=== PATIENT | female | born 1935 | race Two or more races ===

== ENCOUNTER 2018-10-02 20:49 | Inpatient (IN) | payer MEDICARE, MEDICAID ==
--- NOTE | 2018-10-02 21:04 | ED Physician Chart ---
ED Chief Complaint/HPI - Patient Information Date Seen:: 10/02/18 Time Seen:: 20:50 Chief Complaint:: shortness of breath History of Present Illness:: Patient was at the imaging center next door to the hospital when she suddenly developed shortness of breath. No chest pain. Paramedics placed the patient on CPAP and brought her here. Historian:: Patient, Family Member Review:: Nurse's Note Reviewed ED Review of Systems - Review of Systems General/Constitutional: No fever, No chills Head: No headache Eyes: No loss of vision ENT: No earache Neck: No neck pain Cardio Vascular: No chest pain Pulmonary: SOB, Cough GI: No nausea, No vomiting, No diarrhea Musculoskeletal: No bone or joint pain Endocrine: No polyuria Psychiatric: No prior psych history Hematopoietic: No bruising Allergic/Immuno: No urticaria Neurological: No syncope ED Past Medical History - Past Medical History Past Medical History: HTN, DM Family History: HTN, Cancer Social History: No Alcohol, Other (stopped smoking more than 20 years ago) Surgical History: Cholecystectomy Psychiatricy History: None Family Medical History - Family Member Mother History Unknown: Yes Ethnicity: Non- ED Physical Exam - Physical Examination General/Constitutional: Alert Other Gen/Cons comments:: Moderate tachypnea Head: Atraumatic Eyes: Lids, conjuctiva normal, PERRL Skin: Nl inspection, No rash ENMT: External ears, nose nl, Lips, teeth, gums nl Neck: No nuchal rigidity Other Respiratory comments:: Left sided rales Other Cardio Vascular comments:: Heart sounds inaudible GI: No tenderness/rebounding/guarding Other Extremities comments:: 2 out of 4 pretibial pitting edema Neuro/Psych: No focal deficits Misc: No paraspinal tenderness ED Labs/Radiology/EKG Results - Lab Results Results: Laboratory Results WBC 10.9 Th/cmm (4.8-10.8) H 10/02/18 21:20 RBC 4.23 Mil/cmm (3.80-5.20) 10/02/18 21:20 Hgb 13.4 gm/dL (12-16) 10/02/18 21:20 Hct 39.7 % (41.0-60) L 10/02/18 21:20 MCV 93.8 fl (81-100) 10/02/18 21:20 MCH 31.5 pg (27.0-31.0) H 10/02/18 21:20 MCHC Differential 33.6 pg (28.0-36.0) 10/02/18 21:20 RDW 12.8 % (11.5-20.0) 10/02/18 21:20 Plt Count 381 Th/cmm (150-400) 10/02/18 21:20 MPV 8.2 fl 10/02/18 21:20 Neutrophils % 78.7 % (40.0-80.0) 10/02/18 21:20 Lymphocytes % 16.3 % (20.0-50.0) L 10/02/18 21:20 Monocytes % 3.3 % (2.0-10.0) 10/02/18 21:20 Eosinophils % 0.9 % (0.0-5.0) 10/02/18 21:20 Basophils % 0.8 % (0.0-2.0) 10/02/18 21:20 Sodium 138 mEq/L (136-145) 10/02/18 21:20 Potassium 3.3 mEq/L (3.5-5.1) L 10/02/18 21:20 Chloride 99 mEq/L (98-107) 10/02/18 21:20 Carbon Dioxide 26.7 mEq/L (21.0-31.0) 10/02/18 21:20 Anion Gap 15.6 (7.0-16.0) 10/02/18 21:20 BUN 14 mg/dL (7-25) 10/02/18 21:20 Creatinine 0.8 mg/dL (0.6-1.2) 10/02/18 21:20 Est GFR ( Amer) TNP 10/02/18 21:20 Est GFR (Non-Af Amer) TNP 10/02/18 21:20 BUN/Creatinine Ratio 17.5 10/02/18 21:20 Glucose 163 mg/dL (70-105) H 10/02/18 21:20 POC Glucose 158 MG/DL (70 - 105) H 10/02/18 20:59 Calcium 9.9 mg/dL (8.6-10.3) 10/02/18 21:20 Magnesium 1.5 mg/dL (1.9-2.7) L 10/02/18 21:20 - Radiology Results Results: Chest x-ray showed pulmonary congestion - EKG Interpretations Rate & Rhythm: atrial fibrillation with a rate of 110 [place]: normal Comments:: ST and T-wave changes ED Assessment - Assessment General Assessment: After being placed on BiPAP and receiving nitroglycerin 0.4 mg sublingually every 5 minutes 3 patient's shortness of breath markedly improved. Chest x- ray appears to show pulmonary congestion but BNP is only 286. Perhaps the patient's BNP is not higher because her congestive heart failure developed rapidly. Patient to be given potassium chloride 40 mEq orally for her potassium of 3.2 and 2 g of magnesium sulfate IV piggyback her magnesium is 1.5. ED Septic Shock - . Is Septic Shock (SBP<90, OR Lactate>4 mmol\L) present?: No ED Reassessment (Disposition) - Reassessment Reassessment Condition:: Improved - Diagnosis Diagnosis:: Congestive heart failure; hypokalemia; hypomagnesemia; hyperglycemia; diabetes - Patient Disposition Admitted to:: ICU Spoke to:: Nguyen Lao Admitting Medical Physician:: Nguyen Lao Condition at Disposition:: Stable, Improved
[2018-10-02] MEDS ORDERED: Albuterol/Ipratropium Neb 3 ML AERS HHN ONE ×2 (21:11→21:56)
[2018-10-02 21:27] LABS: % BASOPHILS 0.8 % (0.0-2.0); % EOSINOPHILS 0.9 % (0.0-5.0); % LYMPHOCYTES 16.3 % (20.0-50.0); % MONOCYTES 3.3 % (2.0-10.0); % NEUTROPHILS 78.7 % (40.0-80.0); BASOPHILE ABSOLUTE 0.1 Th/cumm (0-0.2); EOSINOPHILE ABSOLUTE 0.1 Th/cmm (0.1-0.4); HEMATOCRIT 39.7 % (41.0-60); HEMOGLOBIN 13.4 gm/dL (12-16); LYMPHOCYTE ABSOLUTE 1.8 Th/cmm (1.5-3.0); MEAN CELL VOLUME 93.8 fl (81-100); MEAN CORPUSCULAR HEMOGLOBIN 31.5 pg (27.0-31.0); MEAN CORPUSCULAR HGB CONC 33.6 pg (28.0-36.0); MONOCYTE ABSOLUTE 0.4 Th/cmm (0.3-1.0); NEUTROPHILE ABSOLUTE 8.5 Th/cmm (1.8-8.0); PLATELET COUNT 381 Th/cmm (150-400); RED BLOOD COUNT 4.23 Mil/cmm (3.80-5.20); RED CELL DISTRIBUTION WIDTH 12.8 % (11.5-20.0); WHITE BLOOD COUNT 10.9 Th/cmm (4.8-10.8)
[2018-10-02 21:47] LABS: ANION GAP 15.6 (7.0-16.0); BUN - UREA NITROGEN 14 mg/dL (7-25); CALCIUM SERUM 9.9 mg/dL (8.6-10.3); CARBON DIOXIDE 26.7 mEq/L (21.0-31.0); CHLORIDE 99 mEq/L (98-107); CREATININE - SERUM 0.8 mg/dL (0.6-1.2); GLUCOSE 163 mg/dL (70-105); MAGNESIUM 1.5 mg/dL (1.9-2.7); POTASSIUM SERUM 3.3 mEq/L (3.5-5.1); SODIUM SERUM 138 mEq/L (136-145)
[2018-10-02] MEDS ORDERED: Potassium Chloride 20 mEq ER Tab PO ONE ×2 (21:51→22:19)
[2018-10-02 21:52] LABS: PaCO2 42.1 mmHg (35.0-45.0); PaO2 128.4 mmHg (80.0-100.0)
[2018-10-02 21:53] LABS: sO2c 98.6 % (92.0-100.0)
[2018-10-02] MEDS ORDERED: Mag Sulfate 2gm/50mL Premix 2 GM/50 ML BAG IV ONE ×2 (21:54→22:01)
[2018-10-02] MEDS ORDERED: Albuterol/Ipratropium Neb 3 ML AERS HHN PRN (23:52)
[2018-10-03] MEDS: INSULIN HUMAN REGULAR 100 UNITS/ML UNIT SUBQ SCH ×5 (00:28→20:17)
[2018-10-03 00:59] VITALS: BP 161/77
[2018-10-03] MEDS: Hydrocodone/APAP 5mg/325mg Tab PO PRN (01:29)
[2018-10-03 05:20] LABS: URINE SOURCE FOLEY PORT
[2018-10-03 05:24] LABS: % BASOPHILS 0.9 % (0.0-2.0); % EOSINOPHILS 0.6 % (0.0-5.0); % LYMPHOCYTES 19.6 % (20.0-50.0); % MONOCYTES 6.2 % (2.0-10.0); % NEUTROPHILS 72.7 % (40.0-80.0); BASOPHILE ABSOLUTE 0.1 Th/cumm (0-0.2); EOSINOPHILE ABSOLUTE 0.1 Th/cmm (0.1-0.4); HEMATOCRIT 38.7 % (41.0-60); HEMOGLOBIN 12.7 gm/dL (12-16); LYMPHOCYTE ABSOLUTE 1.7 Th/cmm (1.5-3.0); MEAN CORPUSCULAR HEMOGLOBIN 30.8 pg (27.0-31.0); MEAN CORPUSCULAR HGB CONC 32.8 pg (28.0-36.0); MONOCYTE ABSOLUTE 0.6 Th/cmm (0.3-1.0); NEUTROPHILE ABSOLUTE 6.4 Th/cmm (1.8-8.0); PLATELET COUNT 362 Th/cmm (150-400); RED BLOOD COUNT 4.12 Mil/cmm (3.80-5.20); RED CELL DISTRIBUTION WIDTH 12.7 % (11.5-20.0); WHITE BLOOD COUNT 8.9 Th/cmm (4.8-10.8)
[2018-10-03 05:31] LABS: URINE BILIRUBIN NEGATIVE (NEGATIVE); URINE BLOOD NEGATIVE (NEGATIVE); URINE GLUCOSE (UA) NEGATIVE (NEGATIVE); URINE KETONE NEGATIVE (NEGATIVE); URINE LEUKOCYTE ESTERASE NEGATIVE (NEGATIVE); URINE NITRATE NEGATIVE (NEGATIVE); URINE PH 7.5 (4.6 - 8.0); URINE PROTEIN NEGATIVE (NEGATIVE); URINE UROBILINOGEN 0.2 E.U./dL (0.2 - 1.0)
[2018-10-03 05:36] LABS: URINE CLARITY CLEAR (CLEAR); URINE COLOR YELLOW; URINE MICROSCOPIC INDICATED? NO
[2018-10-03 05:47] LABS: ALB/GLOB RATIO 1.2 (1.0-1.8); ALKALINE PHOSPHATASE 37 U/L (34-104); ANION GAP 15.8 (7.0-16.0); BILIRUBIN,TOTAL 0.9 mg/dL (0.3-1.0); BUN - UREA NITROGEN 13 mg/dL (7-25); CALCIUM SERUM 9.7 mg/dL (8.6-10.3); CARBON DIOXIDE 27.4 mEq/L (21.0-31.0); CHLORIDE 102 mEq/L (98-107); CREATININE - SERUM 0.8 mg/dL (0.6-1.2); GLUCOSE 111 mg/dL (70-105); POTASSIUM SERUM 3.2 mEq/L (3.5-5.1); SGOT 14 U/L (13-39); SGPT/ALT 12 U/L (7-52); SODIUM SERUM 142 mEq/L (136-145); TOTAL PROTEIN,SERUM 7.4 gm/dL (6.0-8.3)
--- NOTE | 2018-10-03 08:20 | Diagnostic Imaging Report ---
Exam: Portable chest x-ray HISTORY: Shortness of breath Right exam: None Findings: Portable summation of the chest at 2108 reviewed no prior studies available comparison. The study demonstrates no active pulmonic infiltrates or effusions. The heart is enlarged bony thorax is intact. The aortic arch calcified IMPRESSION no active disease.
[2018-10-03] MEDS: Aspirin 81mg Chewable Tab PO SCH (08:34)
[2018-10-03] MEDS: Enoxaparin 40 mg/0.4 mL 0.4mL Syr SUBQ SCH (08:35)
[2018-10-03] MEDS ORDERED: Potassium Chloride 20 mEq ER Tab PO ONE (11:30)
--- NOTE | 2018-10-03 13:56 | General Progress Note ---
Subjective - Review of Systems Service Date: 10/03/18 Subjective: Patient has no complaint of chest pain or shortness of breath Objective - Results Result Diagrams: 10/03/18 05:00 10/03/18 05:00 Recent Labs: Laboratory Last Values WBC 8.9 Th/cmm (4.8-10.8) 10/03/18 05:00 RBC 4.12 Mil/cmm (3.80-5.20) 10/03/18 05:00 Hgb 12.7 gm/dL (12-16) 10/03/18 05:00 Hct 38.7 % (41.0-60) L 10/03/18 05:00 MCV 94.0 fl (81-100) 10/03/18 05:00 MCH 30.8 pg (27.0-31.0) 10/03/18 05:00 MCHC Differential 32.8 pg (28.0-36.0) 10/03/18 05:00 RDW 12.7 % (11.5-20.0) 10/03/18 05:00 Plt Count 362 Th/cmm (150-400) 10/03/18 05:00 MPV 8.2 fl 10/03/18 05:00 Neutrophils % 72.7 % (40.0-80.0) 10/03/18 05:00 Lymphocytes % 19.6 % (20.0-50.0) L 10/03/18 05:00 Monocytes % 6.2 % (2.0-10.0) 10/03/18 05:00 Eosinophils % 0.6 % (0.0-5.0) 10/03/18 05:00 Basophils % 0.9 % (0.0-2.0) 10/03/18 05:00 Specimen Source Arterial 10/02/18 21: Sample Site L.Brachial 10/02/18 21: pH 7.410 (7.35-7.45) 10/02/18 21: pCO2 42.1 mmHg (35.0-45.0) 10/02/18 21: pO2 128.4 mmHg (80.0-100.0) H 10/02/18 21: HCO3 26.3 mEq/L (20.0-26.0) H 10/02/18: Base Excess 1.5 mEq/L (-3.0-3.0) 10/02/18 21: O2 Saturation 98.6 % (92.0-100.0) 10/02/18 21: Everardo Test NA 10/02/18 21: Vent Rate 14 10/02/18 21:29 Inspired O2 40 10/02/18 21: Tidal Volume NA 10/02/18 21: PEEP 8 10/02/18 21:29 Pressure (ins/psv/peep) NA 10/02/18 21:29 Critical Value L.Rocaela 10/02/18 21: Sodium 142 mEq/L (136-145) 10/03/18 05:00 Potassium 3.2 mEq/L (3.5-5.1) L 10/03/18 05:00 Chloride 102 mEq/L (98-107) 10/03/18 05:00 Carbon Dioxide 27.4 mEq/L (21.0-31.0) 10/03/18 05:00 Anion Gap 15.8 (7.0-16.0) 10/03/18 05:00 BUN 13 mg/dL (7-25) 10/03/18 05:00 Creatinine 0.8 mg/dL (0.6-1.2) 10/03/18 05:00 Est GFR ( Amer) TNP 10/03/18 05:00 Est GFR (Non-Af Amer) TNP 10/03/18 05:00 BUN/Creatinine Ratio 16.3 10/03/18 05:00 Glucose 111 mg/dL (70-105) H 10/03/18 05:00 POC Glucose 127 MG/DL (70 - 105) H 10/03/18 11:05 Whole Bld Lactic Acid 1.53 mmol/L (0.60-1.99) 10/02/18 23:45 Calcium 9.7 mg/dL (8.6-10.3) 10/03/18 05:00 Magnesium 1.5 mg/dL (1.9-2.7) L 10/02/18 21:20 Total Bilirubin 0.9 mg/dL (0.3-1.0) 10/03/18 05:00 AST 14 U/L (13-39) 10/03/18 05:00 ALT 12 U/L (7-52) 10/03/18 05:00 Alkaline Phosphatase 37 U/L (34-104) 10/03/18 05:00 Troponin I 0.02 ng/mL (0.01-0.05) 10/03/18 05:00 B-Natriuretic Peptide 286.0 pg/mL (5.0-100.0) H 10/02/18 21:20 Total Protein 7.4 gm/dL (6.0-8.3) 10/03/18 05:00 Albumin 4.0 gm/dL (3.7-5.3) 10/03/18 05:00 Globulin 3.4 gm/dL 10/03/18 05:00 Albumin/Globulin Ratio 1.2 (1.0-1.8) 10/03/18 05:00 Urine Source [place] 10/03/18 04:46 Urine Color YELLOW 10/03/18 04:46 Urine Clarity CLEAR (CLEAR) 10/03/18 04:46 Urine pH 7.5 (4.6 - 8.0) 10/03/18 04:46 Ur Specific [place] 1.010 (1.005-1.030) 10/03/18 04:46 Urine Protein NEGATIVE mg/dL (NEGATIVE) 10/03/18 04:46 Urine Glucose (UA) NEGATIVE mg/dL (NEGATIVE) 10/03/18 04:46 Urine Ketones NEGATIVE mg/dL (NEGATIVE) 10/03/18 04:46 Urine Blood NEGATIVE (NEGATIVE) 10/03/18 04:46 Urine Nitrate NEGATIVE (NEGATIVE) 10/03/18 04:46 Urine Bilirubin NEGATIVE (NEGATIVE) 10/03/18 04:46 Urine Urobilinogen 0.2 E.U./dL (0.2 - 1.0) 10/03/18 04:46 Ur Leukocyte Esterase NEGATIVE (NEGATIVE) 10/03/18 04:46 - Physical Exam Vitals and I&O: Vital Signs Temp 98.2 F 10/03/18 12:00 Pulse 73 10/03/18 13:00 Resp 19 10/03/18 13:00 BP 156/74 10/03/18 13:00 Pulse Ox 98 10/03/18 13:00 Intake & Output 10/02/18 10/03/18 10/03/18 18:59 06:59 18:59 Intake Total 240 Output Total 5600 Balance -5360 Weight (lbs) 127.006 kg Intake: Oral 240 Output: Urine 5600 Other: # Bowel Movements 0 Stool Characteristics Soft Soft Formed Formed Weight Source Bedscale Active Medications: Current Medications Acetaminophen/Hydrocodone Bitart ([place] 5mg/325mg) 1 tab PO Q8HR PRN PRN Reason: Pain (Moderate) Stop: 12/01/18 23:51 Last Admin: 10/03/18 01:29 Dose: 1 tab Albuterol/Ipratropium (Duoneb Neb) 3 ml HHN Q4HRT PRN PRN Reason: Shortness of Breath or Wheeze Stop: 12/01/18 23:51 Aspirin (Aspirin Chewable) 81 mg PO DAILY [facility] Stop: 12/02/18 08:59 Last Admin: 10/03/18 08:34 Dose: 81 mg Carvedilol (Coreg) 6.25 mg PO BID [facility] Stop: 12/02/18 08:59 Last Admin: 10/03/18 08:34 Dose: 6.25 mg Enoxaparin Sodium (Lovenox) 40 mg SUBQ DAILY [facility] Stop: 12/02/18 08:59 Last Admin: 10/03/18 08:35 Dose: 40 mg Furosemide (Lasix) 20 mg IVP Q12HR [facility] Stop: 12/01/18 23:51 Last Admin: 10/03/18 08:35 Dose: 20 mg Gabapentin (Neurontin) 300 mg PO BID [facility] Stop: 12/02/18 08:59 Last Admin: 10/03/18 08:34 Dose: 300 mg Insulin Human Regular (Humulin R) 0 units SUBQ ACHS [facility]; Protocol Stop: 12/02/18 00:29 Last Admin: 10/03/18 11:49 Dose: Not Given Metformin HCl (Glucophage) 1,000 mg PO BID [facility] Stop: 12/02/18 08:59 Last Admin: 10/03/18 08:34 Dose: 1,000 mg Potassium Chloride (Klor-Con) 20 meq PO DAILY [facility] Stop: 12/03/18 08:59 General: Alert, No acute distress HEENT: Mucous membr. moist/pink Neck: Supple, JVD, +2 carotid pulse wo bruit (10 cm above sternal angle) Cardiovascular: Systolic murmurs, Other (atrial fibrillation) Lungs: Other (basilar rales) Abdomen: Bowel sounds, Soft, Obese (hepatojugular false-positive), Other Neurological: Normal speech, Strength at 5/5 X4 ext, Normal tone, Cranial nerves 3-12 NL, Reflexes 2+ Assessment/Plan - Assessment Assessment: Atrial fibrillation Congestive heart failure diastolic dysfunction acute Morbid obesity Hypertension Diabetes mellitus type 2 Hypokalemia Hyper magnesium Obstructive sleep apnea on CPAP machine - Plan Plan: Continue present management anticoagulation Lasix
--- NOTE | 2018-10-03 16:30 | History & Physical ---
ADMIT DATE: 10/02/2018 CHIEF COMPLAINT: Acute shortness of breath. HISTORY OF PRESENT ILLNESS: The patient is an 82-year-old female with long history of hypertension, diabetes mellitus, congestive heart failure, degenerative joint disease, was in the x-ray department for MRI of the right hip. The patient started having shortness of breath. She could not finish the procedure and transferred to the Emergency Room at [facility]. On arrival, was evaluated by physician. The patient was hypoxic, started on BiPAP, admitted to the ICU. No chest pain, no nausea, no vomiting, no fever, no chills. The patient finally was weaned off of the BiPAP and started on 2 liter nasal cannula oxygen and tolerated well. The patient was seen by Dr. Miah Moss, manager entry. Echocardiogram was ordered. PAST MEDICAL HISTORY: Significant for hypertension, diabetes mellitus, CHF, degenerative joint disease, obesity. PAST SURGICAL HISTORY: Hysterectomy. ALLERGIES: PENICILLIN. MEDICATIONS: Follow admission reconciliation. SOCIAL HISTORY: No smoking, no alcohol, no drug. FAMILY HISTORY: Noncontributory. REVIEW OF SYSTEMS: RENAL SYSTEM: No history of chronic renal disorder. CARDIOVASCULAR SYSTEM: She has history of hypertension, CHF. ENDOCRINE SYSTEM: She has diabetes mellitus. No thyroid problem. GASTROINTESTINAL SYSTEM: No upper or lower gastrointestinal bleed. NEUROLOGICAL SYSTEM: Seizure disorder. MUSCULOSKELETAL SYSTEM: She has history of osteoarthritis. PHYSICAL EXAMINATION: GENERAL: She is awake, alert, oriented, not in distress. VITAL SIGNS: Temperature 98.2, heart rate 73, blood pressure 156/74. HEENT: Normocephalic. Pupils reacting equal to light and accommodation. Sclerae clear. NECK: Supple. Negative for lymphadenopathy, JVD or bruit. CHEST: Entry of air bilaterally, diminished. HEART: S1, S2 normal. No murmur or gallop rhythm. ABDOMEN: Soft, bowel sounds positive. EXTREMITIES: 1+ edema. NEUROLOGIC: Awake, alert, oriented. No focal motor deficits. Cranial nerves 2-12 are intact. LABORATORY DATA: White blood cell 10.9, hemoglobin 13.4, hematocrit 39.7, platelet is ____. Sodium 138, potassium 3.3, BUN is 14, creatinine of 0.8. BNP 286. ASSESSMENT: 1. Acute exacerbation of systolic congestive heart failure. 2. Acute respiratory failure. 3. Hypertension. 4. Diabetes mellitus. 5. Degenerative joint disease. 6. Obesity. PLAN: The patient was seen in the ICU under Dr. Lao's service, started on IV Lasix and breathing treatment. The patient will resume her home medication, diet, sliding scale regular insulin coverage a.c. and at bedtime. Dr. Aggarwal, marketing research intern and Dr. Miah Moss, manager entry, consulted on the case. The patient is a full code. Case discussed with the family at bedside. JOB# [id number]
--- NOTE | 2018-10-03 21:34 | Consultation ---
DATE OF CONSULTATION: 10/03/[address] Lao. HISTORY OF PRESENT ILLNESS: This is an 82-year-old morbid obese -[place] female patient who had developed shortness of breath, dizziness, near syncope. Following this, the patient came to the Emergency Room and the patient is admitted. The patient is in atrial fibrillation with slightly elevated BNP level and troponin level and hence cardiac consult is requested. PAST MEDICAL HISTORY: The patient has a history of hypertension, morbid obesity, diabetes mellitus type 2. FAMILY HISTORY: Unremarkable. SOCIAL HISTORY: No history of smoking, alcohol abuse. ALLERGIES: No known allergies. PHYSICAL EXAMINATION: VITAL SIGNS: Blood pressure 130/80, pulse 70, respirations 20. HEAD: Normocephalic. No lumps or bumps. EYES: Pupils equal, reactive to light. Fundi show AV nicking, sclerae white, conjunctivae pink. NECK: Carotid 2+. Normal upstroke. JVD flat. Thyroid not palpable. Lymph nodes not palpable. CHEST: Shows increased AP diameter. No kyphosis, scoliosis. LUNGS: Bilateral rales. Decreased breath sounds both the bases. HEART: PMI sixth intercostal space with lateral to midclavicular line. S1, S2, S3, S4. S1 irregular. Systolic murmur, grade 2/6, lower left sternal border without radiation. ABDOMEN: Soft, morbid obesity, no organomegaly. NEUROLOGIC: Unremarkable. EXTREMITIES: Peripheral pulses 2+. No pedal edema. CLINICAL IMPRESSION: Atrial fibrillation; congestive heart failure; diastolic dysfunction acute, morbid obesity, hypertension, diabetes mellitus type 2, hypokalemia, hypokalemia, obstructive sleep apnea, on continuous positive airway pressure machine. PLAN: The patient to continue on anticoagulation, Lasix. Monitor the patient in ICU. We will also get an echocardiogram. JOB# [id number]
--- NOTE | 2018-10-04 02:06 | Consultation ---
DATE OF CONSULTATION: 10/03/2018 REFERRING PHYSICIAN: Dr. Lao. Thank you very much for this consultation. HISTORY OF PRESENT ILLNESS: This is an 82-year-old female with history of CHF, diabetes, hypertension, having MRI apparently of the hip and started having increasing shortness of breath, was admitted for further treatment and management. The patient is doing better, received diuresis and patient apparently at one point states she was on Lasix at home, but she has not been taking it recently. The patient states she was on the BiPAP, but has improved afterwards. PAST MEDICAL HISTORY: As above. SOCIAL HISTORY: Smoked for about 20 years, quit in the . REVIEW OF SYSTEMS: GENERAL: Some weakness and fatigue. CARDIOVASCULAR: No chest pain or palpitation. RESPIRATORY: Shortness of breath improved and no chest pain. GASTROINTESTINAL: No nausea or vomiting. PHYSICAL EXAMINATION: GENERAL: Awake, alert, not in acute distress. VITAL SIGNS: Temperature 98.2, pulse 70, respirations 19, blood pressure 156/74, saturation 99%. HEENT: Atraumatic, normocephalic. Pupils are reactive to light and accommodation. Ears, nose and throat normal. NECK: Supple. No JVD. CHEST: There are a few rhonchi bilaterally. HEART: Regular rate and rhythm. ABDOMEN: Soft, no tenderness. EXTREMITIES: With 1+ edema. LABORATORY DATA: WBC is 8.9, hemoglobin 12.7, platelets 362. Sodium is 140, potassium 3.2, BUN is 13, creatinine 0.8. The chest x-ray, pulmonary edema, cardiomegaly. IMPRESSION: 1. Respiratory failure. 2. Pulmonary edema. 3. Congestive heart failure exacerbation. 4. Obesity. PLAN: 1. Continue diuresis. 2. Nebulizer treatment. 3. Oxygen supplementation. 4. Follow up chest x-ray. Thank you very much for this consultation. We will follow the patient with you. [facility]# [id number]
[2018-10-04] MEDS: Hydrocodone/APAP 5mg/325mg Tab PO PRN ×2 (02:49→15:12)
[2018-10-04 05:18] LABS: ALB/GLOB RATIO 1.1 (1.0-1.8); ALBUMIN 3.7 gm/dL (3.7-5.3); ALKALINE PHOSPHATASE 33 U/L (34-104); ANION GAP 12.8 (7.0-16.0); BILIRUBIN,TOTAL 0.7 mg/dL (0.3-1.0); BUN - UREA NITROGEN 13 mg/dL (7-25); CALCIUM SERUM 9.3 mg/dL (8.6-10.3); CARBON DIOXIDE 29.5 mEq/L (21.0-31.0); CHLORIDE 101 mEq/L (98-107); CREATININE - SERUM 0.9 mg/dL (0.6-1.2); GLUCOSE 111 mg/dL (70-105); POTASSIUM SERUM 3.3 mEq/L (3.5-5.1); SGOT 13 U/L (13-39); SGPT/ALT 12 U/L (7-52); SODIUM SERUM 140 mEq/L (136-145); TOTAL PROTEIN,SERUM 7.1 gm/dL (6.0-8.3)
[2018-10-04] MEDS: INSULIN HUMAN REGULAR 100 UNITS/ML UNIT SUBQ SCH ×4 (06:33→20:42)
[2018-10-04] MEDS: Aspirin 81mg Chewable Tab PO SCH (08:56)
[2018-10-04] MEDS: Potassium Chloride 20 mEq ER Tab PO SCH (08:56)
[2018-10-04] MEDS: Enoxaparin 40 mg/0.4 mL 0.4mL Syr SUBQ SCH (08:57)
--- NOTE | 2018-10-04 09:27 | Diagnostic Imaging Report ---
Portable chest x-ray Time: 0 723 History: Shortness of breath Allowing for portable technique the heart size is normal. No focal pulmonary parenchymal processes. No hilar or mediastinal abnormalities. Impression: No acute abnormalities.
--- NOTE | 2018-10-04 11:38 | General Progress Note ---
Subjective - Review of Systems Service Date: 10/04/18 Subjective: awake and alert feeling better denies SOB or CP son at bedside Objective - Results Result Diagrams: 10/03/18 05:00 10/04/18 04:45 Recent Labs: Laboratory Last Values WBC 8.9 Th/cmm (4.8-10.8) 10/03/18 05:00 RBC 4.12 Mil/cmm (3.80-5.20) 10/03/18 05:00 Hgb 12.7 gm/dL (12-16) 10/03/18 05:00 Hct 38.7 % (41.0-60) L 10/03/18 05:00 MCV 94.0 fl (81-100) 10/03/18 05:00 MCH 30.8 pg (27.0-31.0) 10/03/18 05:00 MCHC Differential 32.8 pg (28.0-36.0) 10/03/18 05:00 RDW 12.7 % (11.5-20.0) 10/03/18 05:00 Plt Count 362 Th/cmm (150-400) 10/03/18 05:00 MPV 8.2 fl 10/03/18 05:00 Neutrophils % 72.7 % (40.0-80.0) 10/03/18 05:00 Lymphocytes % 19.6 % (20.0-50.0) L 10/03/18 05:00 Monocytes % 6.2 % (2.0-10.0) 10/03/18 05:00 Eosinophils % 0.6 % (0.0-5.0) 10/03/18 05:00 Basophils % 0.9 % (0.0-2.0) 10/03/18 05:00 Specimen Source Arterial 10/02/18 21: Sample Site L.Brachial 10/02/18 21: pH 7.410 (7.35-7.45) 10/02/18 21: pCO2 42.1 mmHg (35.0-45.0) 10/02/18 21: pO2 128.4 mmHg (80.0-100.0) H 10/02/18 21: HCO3 26.3 mEq/L (20.0-26.0) H 10/02/18: Base Excess 1.5 mEq/L (-3.0-3.0) 10/02/18 21:29 O2 Saturation 98.6 % (92.0-100.0) 10/02/18 21:29 Everardo Test NA 10/02/18 21:29 Vent Rate 14 10/02/18 21:29 Inspired O2 40 10/02/18 21:29 Tidal Volume NA 10/02/18 21:29 PEEP 8 10/02/18 21:29 Pressure (ins/psv/peep) NA 10/02/18 21:29 Critical Value L.Rocaela 10/02/18 21:29 Sodium 140 mEq/L (136-145) 10/04/18 04:45 Potassium 3.3 mEq/L (3.5-5.1) L 10/04/18 04:45 Chloride 101 mEq/L (98-107) 10/04/18 04:45 Carbon Dioxide 29.5 mEq/L (21.0-31.0) 10/04/18 04:45 Anion Gap 12.8 (7.0-16.0) 10/04/18 04:45 BUN 13 mg/dL (7-25) 10/04/18 04:45 Creatinine 0.9 mg/dL (0.6-1.2) 10/04/18 04:45 Est GFR ( Amer) TNP 10/04/18 04:45 Est GFR (Non-Af Amer) TNP 10/04/18 04:45 BUN/Creatinine Ratio 14.4 10/04/18 04:45 Glucose 111 mg/dL (70-105) H 10/04/18 04:45 POC Glucose 105 MG/DL (70 - 105) 10/04/18 11:27 Whole Bld Lactic Acid 1.53 mmol/L (0.60-1.99) 10/02/18 23:45 Calcium 9.3 mg/dL (8.6-10.3) 10/04/18 04:45 Magnesium 1.5 mg/dL (1.9-2.7) L 10/02/18 21:20 Total Bilirubin 0.7 mg/dL (0.3-1.0) 10/04/18 04:45 AST 13 U/L (13-39) 10/04/18 04:45 ALT 12 U/L (7-52) 10/04/18 04:45 Alkaline Phosphatase 33 U/L (34-104) L 10/04/18 04:45 Troponin I 0.02 ng/mL (0.01-0.05) 10/03/18 05:00 B-Natriuretic Peptide 286.0 pg/mL (5.0-100.0) H 10/02/18 21:20 Total Protein 7.1 gm/dL (6.0-8.3) 10/04/18 04:45 Albumin 3.7 gm/dL (3.7-5.3) 10/04/18 04:45 Globulin 3.4 gm/dL 10/04/18 04:45 Albumin/Globulin Ratio 1.1 (1.0-1.8) 10/04/18 04:45 Urine Source [place] 10/03/18 04:46 Urine Color YELLOW 10/03/18 04:46 Urine Clarity CLEAR (CLEAR) 10/03/18 04:46 Urine pH 7.5 (4.6 - 8.0) 10/03/18 04:46 Ur Specific [place] 1.010 (1.005-1.030) 10/03/18 04:46 Urine Protein NEGATIVE mg/dL (NEGATIVE) 10/03/18 04:46 Urine Glucose (UA) NEGATIVE mg/dL (NEGATIVE) 10/03/18 04:46 Urine Ketones NEGATIVE mg/dL (NEGATIVE) 10/03/18 04:46 Urine Blood NEGATIVE (NEGATIVE) 10/03/18 04:46 Urine Nitrate NEGATIVE (NEGATIVE) 10/03/18 04:46 Urine Bilirubin NEGATIVE (NEGATIVE) 10/03/18 04:46 Urine Urobilinogen 0.2 E.U./dL (0.2 - 1.0) 10/03/18 04:46 Ur Leukocyte Esterase NEGATIVE (NEGATIVE) 10/03/18 04:46 - Physical Exam Vitals and I&O: Vital Signs Temp 97.2 F 10/04/18 08:00 Pulse 76 10/04/18 10:00 Resp 18 10/04/18 10:00 BP 144/62 10/04/18 10:00 Pulse Ox 93 10/04/18 10:00 Intake & Output 10/03/18 10/04/18 10/04/18 18:59 06:59 18:59 Intake Total 550 480 Output Total 1800 1800 Balance -1250 -1320 Weight (lbs) 127.006 kg 114.334 kg Intake: Oral 550 480 Output: Urine 1800 1800 Other: # Bowel Movements 1 0 Stool Characteristics Soft Formed Weight Source Bedscale Bedscale Active Medications: Current Medications Acetaminophen/Hydrocodone Bitart ([place] 5mg/325mg) 1 tab PO Q8HR PRN PRN Reason: Pain (Moderate) Stop: 12/01/18 23:51 Last Admin: 10/04/18 02:49 Dose: 1 tab Albuterol/Ipratropium (Duoneb Neb) 3 ml HHN Q4HRT PRN PRN Reason: Shortness of Breath or Wheeze Stop: 12/01/18 23:51 Aspirin (Aspirin Chewable) 81 mg PO DAILY [facility] Stop: 12/02/18 08:59 Last Admin: 10/04/18 08:56 Dose: 81 mg Carvedilol (Coreg) 6.25 mg PO BID [facility] Stop: 12/02/18 08:59 Last Admin: 10/04/18 08:56 Dose: 6.25 mg Enoxaparin Sodium (Lovenox) 40 mg SUBQ DAILY [facility] Stop: 12/02/18 08:59 Last Admin: 10/04/18 08:57 Dose: 40 mg Furosemide (Lasix) 20 mg IVP Q12HR [facility] Stop: 12/01/18 23:51 Last Admin: 10/04/18 08:57 Dose: 20 mg Gabapentin (Neurontin) 300 mg PO BID [facility] Stop: 12/02/18 08:59 Last Admin: 10/04/18 08:56 Dose: 300 mg Insulin Human Regular (Humulin R) 0 units SUBQ [facility]; Protocol Stop: 12/02/18 00:29 Last Admin: 10/04/18 11:32 Dose: Not Given Metformin HCl (Glucophage) 1,000 mg PO BID [facility] Stop: 12/02/18 08:59 Last Admin: 10/04/18 08:57 Dose: 1,000 mg Potassium Chloride (Klor-Con) 20 meq PO DAILY [facility] Stop: 12/03/18 08:59 Last Admin: 10/04/18 08:56 Dose: 20 meq General: Alert, No acute distress HEENT: Mucous membr. moist/pink Neck: Supple, JVD, +2 carotid pulse wo bruit (10 cm above sternal angle) Cardiovascular: Systolic murmurs, Other (atrial fibrillation) Lungs: Other (basilar rales) Abdomen: Bowel sounds, Soft, Obese (hepatojugular false-positive), Other Neurological: Normal speech, Strength at 5/5 X4 ext, Normal tone, Cranial nerves 3-12 NL, Reflexes 2+ Assessment/Plan - Assessment Assessment: CHF A.fib DM morbid obesity - Plan Plan: continue current treatment d/w son PT eval
--- NOTE | 2018-10-04 15:15 | General Progress Note ---
Subjective - Review of Systems Service Date: 10/04/18 Subjective: Patient has no complaint of chest pain or shortness of breath Objective - Results Result Diagrams: 10/03/18 05:00 10/04/18 04:45 Recent Labs: Laboratory Last Values WBC 8.9 Th/cmm (4.8-10.8) 10/03/18 05:00 RBC 4.12 Mil/cmm (3.80-5.20) 10/03/18 05:00 Hgb 12.7 gm/dL (12-16) 10/03/18 05:00 Hct 38.7 % (41.0-60) L 10/03/18 05:00 MCV 94.0 fl (81-100) 10/03/18 05:00 MCH 30.8 pg (27.0-31.0) 10/03/18 05:00 MCHC Differential 32.8 pg (28.0-36.0) 10/03/18 05:00 RDW 12.7 % (11.5-20.0) 10/03/18 05:00 Plt Count 362 Th/cmm (150-400) 10/03/18 05:00 MPV 8.2 fl 10/03/18 05:00 Neutrophils % 72.7 % (40.0-80.0) 10/03/18 05:00 Lymphocytes % 19.6 % (20.0-50.0) L 10/03/18 05:00 Monocytes % 6.2 % (2.0-10.0) 10/03/18 05:00 Eosinophils % 0.6 % (0.0-5.0) 10/03/18 05:00 Basophils % 0.9 % (0.0-2.0) 10/03/18 05:00 Specimen Source Arterial 10/02/18 21: Sample Site L.Brachial 10/02/18 21: pH 7.410 (7.35-7.45) 10/02/18 21: pCO2 42.1 mmHg (35.0-45.0) 10/02/18 21: pO2 128.4 mmHg (80.0-100.0) H 10/02/18 21: HCO3 26.3 mEq/L (20.0-26.0) H 10/02/18 21: Base Excess 1.5 mEq/L (-3.0-3.0) 10/02/18 21:29 O2 Saturation 98.6 % (92.0-100.0) 10/02/18 21:29 Everardo Test NA 10/02/18 21:29 Vent Rate 14 10/02/18 21:29 Inspired O2 40 10/02/18 21:29 Tidal Volume NA 10/02/18 21:29 PEEP 8 10/02/18 21:29 Pressure (ins/psv/peep) NA 10/02/18 21:29 Critical Value L.Rocaela 10/02/18 21:29 Sodium 140 mEq/L (136-145) 10/04/18 04:45 Potassium 3.3 mEq/L (3.5-5.1) L 10/04/18 04:45 Chloride 101 mEq/L (98-107) 10/04/18 04:45 Carbon Dioxide 29.5 mEq/L (21.0-31.0) 10/04/18 04:45 Anion Gap 12.8 (7.0-16.0) 10/04/18 04:45 BUN 13 mg/dL (7-25) 10/04/18 04:45 Creatinine 0.9 mg/dL (0.6-1.2) 10/04/18 04:45 Est GFR ( Amer) TNP 10/04/18 04:45 Est GFR (Non-Af Amer) TNP 10/04/18 04:45 BUN/Creatinine Ratio 14.4 10/04/18 04:45 Glucose 111 mg/dL (70-105) H 10/04/18 04:45 POC Glucose 105 MG/DL (70 - 105) 10/04/18 11:27 Whole Bld Lactic Acid 1.53 mmol/L (0.60-1.99) 10/02/18 23:45 Calcium 9.3 mg/dL (8.6-10.3) 10/04/18 04:45 Magnesium 1.5 mg/dL (1.9-2.7) L 10/02/18 21:20 Total Bilirubin 0.7 mg/dL (0.3-1.0) 10/04/18 04:45 AST 13 U/L (13-39) 10/04/18 04:45 ALT 12 U/L (7-52) 10/04/18 04:45 Alkaline Phosphatase 33 U/L (34-104) L 10/04/18 04:45 Troponin I 0.02 ng/mL (0.01-0.05) 10/03/18 05:00 B-Natriuretic Peptide 286.0 pg/mL (5.0-100.0) H 10/02/18 21:20 Total Protein 7.1 gm/dL (6.0-8.3) 10/04/18 04:45 Albumin 3.7 gm/dL (3.7-5.3) 10/04/18 04:45 Globulin 3.4 gm/dL 10/04/18 04:45 Albumin/Globulin Ratio 1.1 (1.0-1.8) 10/04/18 04:45 Urine Source [place] 10/03/18 04:46 Urine Color YELLOW 10/03/18 04:46 Urine Clarity CLEAR (CLEAR) 10/03/18 04:46 Urine pH 7.5 (4.6 - 8.0) 10/03/18 04:46 Ur Specific [employer] [place] 1.010 (1.005-1.030) 10/03/18 04:46 Urine Protein NEGATIVE mg/dL (NEGATIVE) 10/03/18 04:46 Urine Glucose (UA) NEGATIVE mg/dL (NEGATIVE) 10/03/18 04:46 Urine Ketones NEGATIVE mg/dL (NEGATIVE) 10/03/18 04:46 Urine Blood NEGATIVE (NEGATIVE) 10/03/18 04:46 Urine Nitrate NEGATIVE (NEGATIVE) 10/03/18 04:46 Urine Bilirubin NEGATIVE (NEGATIVE) 10/03/18 04:46 Urine Urobilinogen 0.2 E.U./dL (0.2 - 1.0) 10/03/18 04:46 Ur Leukocyte Esterase NEGATIVE (NEGATIVE) 10/03/18 04:46 - Physical Exam Vitals and I&O: Vital Signs Temp 97.2 F 10/04/18 08:00 Pulse 76 10/04/18 10:00 Resp 18 10/04/18 10:00 BP 144/62 10/04/18 10:00 Pulse Ox 93 10/04/18 10:00 Intake & Output 10/03/18 10/04/18 10/04/18 18:59 06:59 18:59 Intake Total 550 480 Output Total 1800 1800 Balance -1250 -1320 Weight (lbs) 127.006 kg 114.334 kg Intake: Oral 550 480 Output: Urine 1800 1800 Other: # Bowel Movements 1 0 Stool Characteristics Soft Formed Weight Source Bedscale Bedscale Active Medications: Current Medications Acetaminophen/Hydrocodone Bitart ([place] 5mg/325mg) 1 tab PO Q8HR PRN PRN Reason: Pain (Moderate) Stop: 12/01/18 23:51 Last Admin: 10/04/18 15:12 Dose: 1 tab Albuterol/Ipratropium (Duoneb Neb) 3 ml HHN Q4HRT PRN PRN Reason: Shortness of Breath or Wheeze Stop: 12/01/18 23:51 Aspirin (Aspirin Chewable) 81 mg PO DAILY [facility]PLAC[facility] BY [facility] Stop: 12/02/18 08:59 Last Admin: 10/04/18 08:56 Dose: 81 mg Carvedilol (Coreg) 6.25 mg PO BID REPLACED BY [facility] Stop: 12/02/18 08:59 Last Admin: 10/04/18 08:56 Dose: 6.25 mg Enoxaparin Sodium (Lovenox) 40 mg SUBQ DAILY [facility] BY [facility] Stop: 12/02/18 08:59 Last Admin: 10/04/18 08:57 Dose: 40 mg Furosemide (Lasix) 20 mg IVP Q12HR REPLACED BY [facility] Stop: 12/01/18 23:51 Last Admin: 10/04/18 08:57 Dose: 20 mg Gabapentin (Neurontin) 300 mg PO BID REPLACED BY [facility] Stop: 12/02/18 08:59 Last Admin: 10/04/18 08:56 Dose: 300 mg Insulin Human Regular (Humulin R) 0 units SUBQ [facility] REPLACED BY [facility]; Protocol Stop: 12/02/18 00:29 Last Admin: 10/04/18 11:32 Dose: Not Given Metformin HCl (Glucophage) 1,000 mg PO BID REPLACED BY [facility] Stop: 12/02/18 08:59 Last Admin: 10/04/18 08:57 Dose: 1,000 mg Potassium Chloride (Klor-Con) 20 meq PO DAILY [facility]PL[facility]ED BY [facility] Stop: 12/03/18 08:59 Last Admin: 10/04/18 08:56 Dose: 20 meq General: Alert, No acute distress HEENT: Mucous membr. moist/pink Neck: Supple, JVD, +2 carotid pulse wo bruit (10 cm above sternal angle) Cardiovascular: Systolic murmurs, Other (atrial fibrillation) Lungs: Other (basilar rales) Abdomen: Bowel sounds, Soft, Obese (hepatojugular false-positive), Other Neurological: Normal speech, Strength at 5/5 X4 ext, Normal tone, Cranial nerves 3-12 NL, Reflexes 2+ Assessment/Plan - Assessment Assessment: Atrial fibrillation Congestive heart failure diastolic dysfunction acute Morbid obesity Hypertension Diabetes mellitus type 2 Hypokalemia Hyper magnesium Obstructive sleep apnea on CPAP machine - Plan Plan: Continue present management anticoagulation Lasix
--- NOTE | 2018-10-05 02:32 | Progress Notes ---
DATE: 10/02/2018 PULMONARY PROGRESS NOTE SUBJECTIVE: The patient appears to be doing okay, comfortable and less shortness of breath, in no distress. OBJECTIVE: VITAL SIGNS: Temperature 97.2, pulse 76, respirations 18, blood pressure 144/63, saturation 93-94%. CHEST: Good breath sounds. Decreased rales or rhonchi. HEART: Regular rate and rhythm. No murmurs. ABDOMEN: Soft, no tenderness. EXTREMITIES: No edema. LABORATORY DATA: Sodium is 140, potassium 3.3, BUN is 13, creatinine 0.9. IMAGING: Chest x-ray showed resolved pulmonary edema. IMPRESSION: 1. Respiratory failure. 2. Pulmonary edema. 3. Congestive heart failure exacerbation. 4. Obesity. PLAN: Continue diuresis, supportive care, nebulizer treatment. Discharge planing in a day or two. JOB# [id number]
[2018-10-05 05:04] LABS: % EOSINOPHILS 2.4 % (0.0-5.0); % LYMPHOCYTES 33.6 % (20.0-50.0); % MONOCYTES 6.3 % (2.0-10.0); % NEUTROPHILS 56.7 % (40.0-80.0); BASOPHILE ABSOLUTE 0.1 Th/cumm (0-0.2); EOSINOPHILE ABSOLUTE 0.2 Th/cmm (0.1-0.4); HEMATOCRIT 35.8 % (41.0-60); LYMPHOCYTE ABSOLUTE 2.1 Th/cmm (1.5-3.0); MEAN CELL VOLUME 93.9 fl (81-100); MEAN CORPUSCULAR HEMOGLOBIN 31.5 pg (27.0-31.0); MEAN CORPUSCULAR HGB CONC 33.5 pg (28.0-36.0); MONOCYTE ABSOLUTE 0.4 Th/cmm (0.3-1.0); NEUTROPHILE ABSOLUTE 3.5 Th/cmm (1.8-8.0); PLATELET COUNT 332 Th/cmm (150-400); RED BLOOD COUNT 3.82 Mil/cmm (3.80-5.20); WHITE BLOOD COUNT 6.3 Th/cmm (4.8-10.8)
[2018-10-05 05:38] LABS: ANION GAP 12.1 (7.0-16.0); BUN - UREA NITROGEN 15 mg/dL (7-25); CALCIUM SERUM 9.1 mg/dL (8.6-10.3); CARBON DIOXIDE 30.3 mEq/L (21.0-31.0); CHLORIDE 101 mEq/L (98-107); CREATININE - SERUM 0.9 mg/dL (0.6-1.2); GLUCOSE 96 mg/dL (70-105); POTASSIUM SERUM 3.4 mEq/L (3.5-5.1); SODIUM SERUM 140 mEq/L (136-145)
[2018-10-05] MEDS: INSULIN HUMAN REGULAR 100 UNITS/ML UNIT SUBQ SCH ×4 (06:40→20:23)
[2018-10-05] MEDS: Potassium Chloride 20 mEq ER Tab PO SCH (08:59)
[2018-10-05] MEDS: Enoxaparin 40 mg/0.4 mL 0.4mL Syr SUBQ SCH (08:59)
[2018-10-05] MEDS: Aspirin 81mg Chewable Tab PO SCH (08:59)
--- NOTE | 2018-10-05 14:15 | General Progress Note ---
Subjective - Review of Systems Service Date: 10/05/18 Subjective: Patient has no complaint of chest pain or shortness of breath Objective - Results Result Diagrams: 10/05/18 04:50 10/05/18 04:50 Recent Labs: Laboratory Last Values WBC 6.3 Th/cmm (4.8-10.8) 10/05/18 04:50 RBC 3.82 Mil/cmm (3.80-5.20) 10/05/18 04:50 Hgb 12.0 gm/dL (12-16) 10/05/18 04:50 Hct 35.8 % (41.0-60) L 10/05/18 04:50 MCV 93.9 fl (81-100) 10/05/18 04:50 MCH 31.5 pg (27.0-31.0) H 10/05/18 04:50 MCHC Differential 33.5 pg (28.0-36.0) 10/05/18 04:50 RDW 13.0 % (11.5-20.0) 10/05/18 04:50 Plt Count 332 Th/cmm (150-400) 10/05/18 04:50 MPV 8.0 fl 10/05/18 04:50 Neutrophils % 56.7 % (40.0-80.0) 10/05/18 04:50 Lymphocytes % 33.6 % (20.0-50.0) 10/05/18 04:50 Monocytes % 6.3 % (2.0-10.0) 10/05/18 04:50 Eosinophils % 2.4 % (0.0-5.0) 10/05/18 04:50 Basophils % 1.0 % (0.0-2.0) 10/05/18 04:50 Specimen Source Arterial 10/02/18 21:29 Sample Site L.Brachial 10/02/18 21:29 pH 7.410 (7.35-7.45) 10/02/18 21:29 pCO2 42.1 mmHg (35.0-45.0) 10/02/18 21:29 pO2 128.4 mmHg (80.0-100.0) H 10/02/18 21:29 HCO3 26.3 mEq/L (20.0-26.0) H 10/02/18 21:29 Base Excess 1.5 mEq/L (-3.0-3.0) 10/02/18 21:29 O2 Saturation 98.6 % (92.0-100.0) 10/02/18 21:29 Everardo Test NA 10/02/18 21:29 Vent Rate 14 10/02/18 21:29 Inspired O2 40 10/02/18 21:29 Tidal Volume NA 10/02/18 21:29 PEEP 8 10/02/18 21:29 Pressure (ins/psv/peep) NA 10/02/18 21:29 Critical Value L.Rocaela 10/02/18 21:29 Sodium 140 mEq/L (136-145) 10/05/18 04:50 Potassium 3.4 mEq/L (3.5-5.1) L 10/05/18 04:50 Chloride 101 mEq/L (98-107) 10/05/18 04:50 Carbon Dioxide 30.3 mEq/L (21.0-31.0) 10/05/18 04:50 Anion Gap 12.1 (7.0-16.0) 10/05/18 04:50 BUN 15 mg/dL (7-25) 10/05/18 04:50 Creatinine 0.9 mg/dL (0.6-1.2) 10/05/18 04:50 Est GFR ( Amer) TNP 10/05/18 04:50 Est GFR (Non-Af Amer) TNP 10/05/18 04:50 BUN/Creatinine Ratio 16.7 10/05/18 04:50 Glucose 96 mg/dL (70-105) 10/05/18 04:50 POC Glucose 98 MG/DL (70 - 105) 10/05/18 11:49 Whole Bld Lactic Acid 1.53 mmol/L (0.60-1.99) 10/02/18 23:45 Calcium 9.1 mg/dL (8.6-10.3) 10/05/18 04:50 Magnesium 1.5 mg/dL (1.9-2.7) L 10/02/18 21:20 Total Bilirubin 0.7 mg/dL (0.3-1.0) 10/04/18 04:45 AST 13 U/L (13-39) 10/04/18 04:45 ALT 12 U/L (7-52) 10/04/18 04:45 Alkaline Phosphatase 33 U/L (34-104) L 10/04/18 04:45 Troponin I 0.02 ng/mL (0.01-0.05) 10/03/18 05:00 B-Natriuretic Peptide 286.0 pg/mL (5.0-100.0) H 10/02/18 21:20 Total Protein 7.1 gm/dL (6.0-8.3) 10/04/18 04:45 Albumin 3.7 gm/dL (3.7-5.3) 10/04/18 04:45 Globulin 3.4 gm/dL 10/04/18 04:45 Albumin/Globulin Ratio 1.1 (1.0-1.8) 10/04/18 04:45 Urine Source [place] 10/03/18 04:46 Urine Color YELLOW 10/03/18 04:46 Urine Clarity CLEAR (CLEAR) 10/03/18 04:46 Urine pH 7.5 (4.6 - 8.0) 10/03/18 04:46 Ur Specific [place] 1.010 (1.005-1.030) 10/03/18 04:46 Urine Protein NEGATIVE mg/dL (NEGATIVE) 10/03/18 04:46 Urine Glucose (UA) NEGATIVE mg/dL (NEGATIVE) 10/03/18 04:46 Urine Ketones NEGATIVE mg/dL (NEGATIVE) 10/03/18 04:46 Urine Blood NEGATIVE (NEGATIVE) 10/03/18 04:46 Urine Nitrate NEGATIVE (NEGATIVE) 10/03/18 04:46 Urine Bilirubin NEGATIVE (NEGATIVE) 10/03/18 04:46 Urine Urobilinogen 0.2 E.U./dL (0.2 - 1.0) 10/03/18 04:46 Ur Leukocyte Esterase NEGATIVE (NEGATIVE) 10/03/18 04:46 - Physical Exam Vitals and I&O: Vital Signs Temp 97.2 F 10/05/18 08:00 Pulse 79 10/05/18 09:00 Resp 14 10/05/18 09:00 BP 159/73 10/05/18 09:00 Pulse Ox 100 10/05/18 09:00 Intake & Output 10/04/18 10/05/18 10/05/18 18:59 06:59 18:59 Intake Total 1800 300 Output Total 1900 900 Balance -100 -600 Weight (lbs) 114.26 kg 114.26 kg Intake: Oral 1800 300 Output: Urine 1900 900 Other: # Bowel Movements 0 0 Weight Source Bedscale Bedscale Active Medications: Current Medications Acetaminophen/Hydrocodone Bitart ([place] 5mg/325mg) 1 tab PO Q8HR PRN PRN Reason: Pain (Moderate) Stop: 12/01/18 23:51 Last Admin: 10/04/18 15:12 Dose: 1 tab Albuterol/Ipratropium (Duoneb Neb) 3 ml HHN Q4HRT PRN PRN Reason: Shortness of Breath or Wheeze Stop: 12/01/18 23:51 Aspirin (Aspirin Chewable) 81 mg PO DAILY [facility] Stop: 12/02/18 08:59 Last Admin: 10/05/18 08:59 Dose: 81 mg Carvedilol (Coreg) 6.25 mg PO BID [facility] Stop: 12/02/18 08:59 Last Admin: 10/05/18 08:58 Dose: 6.25 mg Enoxaparin Sodium (Lovenox) 40 mg SUBQ DAILY [facility] Stop: 12/02/18 08:59 Last Admin: 10/05/18 08:59 Dose: 40 mg Furosemide (Lasix) 20 mg IVP Q12HR [facility] Stop: 12/01/18 23:51 Last Admin: 10/05/18 08:59 Dose: 20 mg Gabapentin (Neurontin) 300 mg PO BID [facility] Stop: 12/02/18 08:59 Last Admin: 10/05/18 08:58 Dose: 300 mg Insulin Human Regular (Humulin R) 0 units SUBQ [facility]; Protocol Stop: 12/02/18 00:29 Last Admin: 10/05/18 11:51 Dose: Not Given Metformin HCl (Glucophage) 1,000 mg PO BID [facility] Stop: 12/02/18 08:59 Last Admin: 10/05/18 08:58 Dose: 1,000 mg Potassium Chloride (Klor-Con) 20 meq PO DAILY [facility] Stop: 12/03/18 08:59 Last Admin: 10/05/18 08:59 Dose: 20 meq General: Alert, No acute distress HEENT: Mucous membr. moist/pink Neck: Supple, JVD, +2 carotid pulse wo bruit (10 cm above sternal angle) Cardiovascular: Systolic murmurs, Other (atrial fibrillation) Lungs: Other (basilar rales) Abdomen: Bowel sounds, Soft, Obese (hepatojugular false-positive), Other Neurological: Normal speech, Strength at 5/5 X4 ext, Normal tone, Cranial nerves 3-12 NL, Reflexes 2+ Assessment/Plan - Assessment Assessment: Atrial fibrillation Congestive heart failure diastolic dysfunction acute Morbid obesity Hypertension Diabetes mellitus type 2 Hypokalemia Hyper magnesium Obstructive sleep apnea on CPAP machine and pulmonary hypertension - Plan Plan: Continue present management anticoagulation Lasix
--- NOTE | 2018-10-05 15:33 | General Progress Note ---
Subjective - Review of Systems Service Date: 10/05/18 Subjective: awake and alert denies SOB or CP son and other family at bedside Objective - Results Result Diagrams: 10/05/18 04:50 10/05/18 04:50 Recent Labs: Laboratory Last Values WBC 6.3 Th/cmm (4.8-10.8) 10/05/18 04:50 RBC 3.82 Mil/cmm (3.80-5.20) 10/05/18 04:50 Hgb 12.0 gm/dL (12-16) 10/05/18 04:50 Hct 35.8 % (41.0-60) L 10/05/18 04:50 MCV 93.9 fl (81-100) 10/05/18 04:50 MCH 31.5 pg (27.0-31.0) H 10/05/18 04:50 MCHC Differential 33.5 pg (28.0-36.0) 10/05/18 04:50 RDW 13.0 % (11.5-20.0) 10/05/18 04:50 Plt Count 332 Th/cmm (150-400) 10/05/18 04:50 MPV 8.0 fl 10/05/18 04:50 Neutrophils % 56.7 % (40.0-80.0) 10/05/18 04:50 Lymphocytes % 33.6 % (20.0-50.0) 10/05/18 04:50 Monocytes % 6.3 % (2.0-10.0) 10/05/18 04:50 Eosinophils % 2.4 % (0.0-5.0) 10/05/18 04:50 Basophils % 1.0 % (0.0-2.0) 10/05/18 04:50 Specimen Source Arterial 10/02/18 21:29 Sample Site L.Brachial 10/02/18 21:29 pH 7.410 (7.35-7.45) 10/02/18 21:29 pCO2 42.1 mmHg (35.0-45.0) 10/02/18 21:29 pO2 128.4 mmHg (80.0-100.0) H 10/02/18 21:29 HCO3 26.3 mEq/L (20.0-26.0) H 10/02/18 21:29 Base Excess 1.5 mEq/L (-3.0-3.0) 10/02/18 21:29 O2 Saturation 98.6 % (92.0-100.0) 10/02/18 21:29 Everardo Test NA 10/02/18 21:29 Vent Rate 14 10/02/18 21:29 Inspired O2 40 10/02/18 21:29 Tidal Volume NA 10/02/18 21:29 PEEP 8 10/02/18 21:29 Pressure (ins/psv/peep) NA 10/02/18 21:29 Critical Value L.Rocaela 10/02/18 21:29 Sodium 140 mEq/L (136-145) 10/05/18 04:50 Potassium 3.4 mEq/L (3.5-5.1) L 10/05/18 04:50 Chloride 101 mEq/L (98-107) 10/05/18 04:50 Carbon Dioxide 30.3 mEq/L (21.0-31.0) 10/05/18 04:50 Anion Gap 12.1 (7.0-16.0) 10/05/18 04:50 BUN 15 mg/dL (7-25) 10/05/18 04:50 Creatinine 0.9 mg/dL (0.6-1.2) 10/05/18 04:50 Est GFR ( Amer) TNP 10/05/18 04:50 Est GFR (Non-Af Amer) TNP 10/05/18 04:50 BUN/Creatinine Ratio 16.7 10/05/18 04:50 Glucose 96 mg/dL (70-105) 10/05/18 04:50 POC Glucose 98 MG/DL (70 - 105) 10/05/18 11:49 Whole Bld Lactic Acid 1.53 mmol/L (0.60-1.99) 10/02/18 23:45 Calcium 9.1 mg/dL (8.6-10.3) 10/05/18 04:50 Magnesium 1.5 mg/dL (1.9-2.7) L 10/02/18 21:20 Total Bilirubin 0.7 mg/dL (0.3-1.0) 10/04/18 04:45 AST 13 U/L (13-39) 10/04/18 04:45 ALT 12 U/L (7-52) 10/04/18 04:45 Alkaline Phosphatase 33 U/L (34-104) L 10/04/18 04:45 Troponin I 0.02 ng/mL (0.01-0.05) 10/03/18 05:00 B-Natriuretic Peptide 286.0 pg/mL (5.0-100.0) H 10/02/18 21:20 Total Protein 7.1 gm/dL (6.0-8.3) 10/04/18 04:45 Albumin 3.7 gm/dL (3.7-5.3) 10/04/18 04:45 Globulin 3.4 gm/dL 10/04/18 04:45 Albumin/Globulin Ratio 1.1 (1.0-1.8) 10/04/18 04:45 Urine Source [place] 10/03/18 04:46 Urine Color YELLOW 10/03/18 04:46 Urine Clarity CLEAR (CLEAR) 10/03/18 04:46 Urine pH 7.5 (4.6 - 8.0) 10/03/18 04:46 Ur Specific [place] 1.010 (1.005-1.030) 10/03/18 04:46 Urine Protein NEGATIVE mg/dL (NEGATIVE) 10/03/18 04:46 Urine Glucose (UA) NEGATIVE mg/dL (NEGATIVE) 10/03/18 04:46 Urine Ketones NEGATIVE mg/dL (NEGATIVE) 10/03/18 04:46 Urine Blood NEGATIVE (NEGATIVE) 10/03/18 04:46 Urine Nitrate NEGATIVE (NEGATIVE) 10/03/18 04:46 Urine Bilirubin NEGATIVE (NEGATIVE) 10/03/18 04:46 Urine Urobilinogen 0.2 E.U./dL (0.2 - 1.0) 10/03/18 04:46 Ur Leukocyte Esterase NEGATIVE (NEGATIVE) 10/03/18 04:46 - Physical Exam Vitals and I&O: Vital Signs Temp 97.2 F 10/05/18 08:00 Pulse 79 10/05/18 09:00 Resp 14 10/05/18 09:00 BP 159/73 10/05/18 09:00 Pulse Ox 100 10/05/18 09:00 Intake & Output 10/04/18 10/05/18 10/05/18 18:59 06:59 18:59 Intake Total 1800 300 Output Total 1900 900 Balance -100 -600 Weight (lbs) 114.26 kg 114.26 kg Intake: Oral 1800 300 Output: Urine 1900 900 Other: # Bowel Movements 0 0 Weight Source Bedscale Bedscale Active Medications: Current Medications Acetaminophen/Hydrocodone Bitart ([place] 5mg/325mg) 1 tab PO Q8HR PRN PRN Reason: Pain (Moderate) Stop: 12/01/18 23:51 Last Admin: 10/04/18 15:12 Dose: 1 tab Albuterol/Ipratropium (Duoneb Neb) 3 ml HHN Q4HRT PRN PRN Reason: Shortness of Breath or Wheeze Stop: 12/01/18 23:51 Aspirin (Aspirin Chewable) 81 mg PO DAILY [facility] Stop: 12/02/18 08:59 Last Admin: 10/05/18 08:59 Dose: 81 mg Carvedilol (Coreg) 6.25 mg PO BID [facility] Stop: 12/02/18 08:59 Last Admin: 10/05/18 08:58 Dose: 6.25 mg Enoxaparin Sodium (Lovenox) 40 mg SUBQ DAILY [facility] Stop: 12/02/18 08:59 Last Admin: 10/05/18 08:59 Dose: 40 mg Furosemide (Lasix) 20 mg IVP Q12HR [facility] Stop: 12/01/18 23:51 Last Admin: 10/05/18 08:59 Dose: 20 mg Gabapentin (Neurontin) 300 mg PO BID [facility] Stop: 12/02/18 08:59 Last Admin: 10/05/18 08:58 Dose: 300 mg Insulin Human Regular (Humulin R) 0 units SUBQ [facility]; Protocol Stop: 12/02/18 00:29 Last Admin: 10/05/18 11:51 Dose: Not Given Metformin HCl (Glucophage) 1,000 mg PO BID [facility] Stop: 12/02/18 08:59 Last Admin: 10/05/18 08:58 Dose: 1,000 mg Potassium Chloride (Klor-Con) 20 meq PO DAILY [facility] Stop: 12/03/18 08:59 Last Admin: 10/05/18 08:59 Dose: 20 meq General: Alert, No acute distress HEENT: Mucous membr. moist/pink Neck: Supple, JVD, +2 carotid pulse wo bruit (10 cm above sternal angle) Cardiovascular: Normal S1, Normal S2, Systolic murmurs, Other (atrial fibrillation) Lungs: Other (basilar rales) Abdomen: Bowel sounds, Soft, Obese (hepatojugular false-positive), Other Neurological: Normal speech, Strength at 5/5 X4 ext, Normal tone, Cranial nerves 3-12 NL, Reflexes 2+ Assessment/Plan - Assessment Assessment: CHF A.fib DM morbid obesity - Plan Plan: continue current treatment stable for tele d/w son d/c coordination
--- NOTE | 2018-10-05 17:48 | Cardiology ---
10/03/2018 ECHOCARDIOGRAM REPORT M-MODE ECHOCARDIOGRAM: Mitral valve, anterior leaflet of mitral valve shows normal excursion, EF velocity. Posterior leaflet of the mitral valve shows normal excursion. Left ventricular posterior wall shows increased thickness, normal excursion. Interventricular septum shows increased thickness, normal excursion. Hypertrophy of the left ventricle, ejection fraction 76%. Left atrium enlarged 5.078 cm. Aortic root shows normal dimension, normal excursion of aortic leaflets. CONCLUSION: Left atrial enlargement, hypertrophy of the left ventricle, ejection fraction 76%. 2D ECHO: Long axis view shows hypertrophy of the left ventricle, ejection fraction 76%. Left atrium enlarged. Aortic root shows normal dimension, normal excursion of aortic leaflets. Short axis view of mitral valve normal. Short axis view of aortic valve normal. Apical four chamber view showed normal sized left ventricle with hypertrophy of the left ventricle. Left atrium enlarged. Right ventricular cavity, right atrium normal, no pericardial effusion. CONCLUSION: Hypertrophy of the left ventricle, left atrial enlargement, ejection fraction 76%. Doppler study shows moderate mitral regurgitation, moderate tricuspid regurgitation, right ventricular systolic pressure 50 mmHg with mild pulmonary hypertension. [facility]# [id number]
[2018-10-06 04:38] LABS: NEUTROPHILE ABSOLUTE 4.5 Th/cmm (1.8-8.0)
[2018-10-06 05:36] LABS: % BASOPHILS 0.8 % (0.0-2.0); % LYMPHOCYTES 25.1 % (20.0-50.0); % MONOCYTES 6.4 % (2.0-10.0); % NEUTROPHILS 65.7 % (40.0-80.0); BASOPHILE ABSOLUTE 0.1 Th/cumm (0-0.2); EOSINOPHILE ABSOLUTE 0.1 Th/cmm (0.1-0.4); HEMOGLOBIN 12.3 gm/dL (12-16); LYMPHOCYTE ABSOLUTE 1.7 Th/cmm (1.5-3.0); MEAN CELL VOLUME 94.3 fl (81-100); MEAN CORPUSCULAR HEMOGLOBIN 31.3 pg (27.0-31.0); MEAN CORPUSCULAR HGB CONC 33.3 pg (28.0-36.0); MONOCYTE ABSOLUTE 0.4 Th/cmm (0.3-1.0); PLATELET COUNT 341 Th/cmm (150-400); RED BLOOD COUNT 3.92 Mil/cmm (3.80-5.20); RED CELL DISTRIBUTION WIDTH 12.9 % (11.5-20.0); WHITE BLOOD COUNT 6.8 Th/cmm (4.8-10.8)
[2018-10-06 05:45] LABS: ALBUMIN 3.7 gm/dL (3.7-5.3); ALKALINE PHOSPHATASE 34 U/L (34-104); BILIRUBIN,TOTAL 0.4 mg/dL (0.3-1.0); BUN - UREA NITROGEN 13 mg/dL (7-25); CALCIUM SERUM 9.2 mg/dL (8.6-10.3); CARBON DIOXIDE 30.3 mEq/L (21.0-31.0); CHLORIDE 101 mEq/L (98-107); GLUCOSE 102 mg/dL (70-105); POTASSIUM SERUM 3.3 mEq/L (3.5-5.1); SGOT 18 U/L (13-39); SGPT/ALT 15 U/L (7-52); SODIUM SERUM 141 mEq/L (136-145); TOTAL PROTEIN,SERUM 7.4 gm/dL (6.0-8.3)
[2018-10-06] MEDS: INSULIN HUMAN REGULAR 100 UNITS/ML UNIT SUBQ SCH ×2 (06:52→12:02)
[2018-10-06] MEDS: Potassium Chloride 20 mEq ER Tab PO SCH (09:21)
[2018-10-06] MEDS: Enoxaparin 40 mg/0.4 mL 0.4mL Syr SUBQ SCH (09:21)
[2018-10-06] MEDS: Aspirin 81mg Chewable Tab PO SCH (09:21)
--- NOTE | 2018-10-06 10:47 | General Progress Note ---
Subjective - Review of Systems Service Date: 10/06/18 Subjective: Patient has no complaint of chest pain or shortness of breath Objective - Results Result Diagrams: 10/06/18 04:15 10/06/18 04:15 Recent Labs: Laboratory Last Values WBC 6.8 Th/cmm (4.8-10.8) 10/06/18 04:15 RBC 3.92 Mil/cmm (3.80-5.20) 10/06/18 04:15 Hgb 12.3 gm/dL (12-16) 10/06/18 04:15 Hct 37.0 % (41.0-60) L 10/06/18 04:15 MCV 94.3 fl (81-100) 10/06/18 04:15 MCH 31.3 pg (27.0-31.0) H 10/06/18 04:15 MCHC Differential 33.3 pg (28.0-36.0) 10/06/18 04:15 RDW 12.9 % (11.5-20.0) 10/06/18 04:15 Plt Count 341 Th/cmm (150-400) 10/06/18 04:15 MPV 8.9 fl 10/06/18 04:15 Neutrophils % 65.7 % (40.0-80.0) 10/06/18 04:15 Lymphocytes % 25.1 % (20.0-50.0) 10/06/18 04:15 Monocytes % 6.4 % (2.0-10.0) 10/06/18 04:15 Eosinophils % 2.0 % (0.0-5.0) 10/06/18 04:15 Basophils % 0.8 % (0.0-2.0) 10/06/18 04:15 Specimen Source Arterial 10/02/18 21:29 Sample Site L.Brachial 10/02/18 21:29 pH 7.410 (7.35-7.45) 10/02/18 21:29 pCO2 42.1 mmHg (35.0-45.0) 10/02/18 21:29 pO2 128.4 mmHg (80.0-100.0) H 10/02/18 21:29 HCO3 26.3 mEq/L (20.0-26.0) H 10/02/18 21:29 Base Excess 1.5 mEq/L (-3.0-3.0) 10/02/18 21:29 O2 Saturation 98.6 % (92.0-100.0) 10/02/18 21:29 Everardo Test NA 10/02/18 21:29 Vent Rate 14 10/02/18 21:29 Inspired O2 40 10/02/18 21:29 Tidal Volume NA 10/02/18 21:29 PEEP 8 10/02/18 21:29 Pressure (ins/psv/peep) NA 10/02/18 21:29 Critical Value L.Rocaela 10/02/18 21:29 Sodium 141 mEq/L (136-145) 10/06/18 04:15 Potassium 3.3 mEq/L (3.5-5.1) L 10/06/18 04:15 Chloride 101 mEq/L (98-107) 10/06/18 04:15 Carbon Dioxide 30.3 mEq/L (21.0-31.0) 10/06/18 04:15 Anion Gap 13.0 (7.0-16.0) 10/06/18 04:15 BUN 13 mg/dL (7-25) 10/06/18 04:15 Creatinine 1.0 mg/dL (0.6-1.2) 10/06/18 04:15 Est GFR ( Amer) TNP 10/06/18 04:15 Est GFR (Non-Af Amer) TNP 10/06/18 04:15 BUN/Creatinine Ratio 13.0 10/06/18 04:15 Glucose 102 mg/dL (70-105) 10/06/18 04:15 POC Glucose 100 MG/DL (70 - 105) 10/06/18 06:47 Whole Bld Lactic Acid 1.53 mmol/L (0.60-1.99) 10/02/18 23:45 Calcium 9.2 mg/dL (8.6-10.3) 10/06/18 04:15 Magnesium 1.5 mg/dL (1.9-2.7) L 10/02/18 21:20 Total Bilirubin 0.4 mg/dL (0.3-1.0) 10/06/18 04:15 AST 18 U/L (13-39) 10/06/18 04:15 ALT 15 U/L (7-52) 10/06/18 04:15 Alkaline Phosphatase 34 U/L (34-104) 10/06/18 04:15 Troponin I 0.02 ng/mL (0.01-0.05) 10/03/18 05:00 B-Natriuretic Peptide 286.0 pg/mL (5.0-100.0) H 10/02/18 21:20 Total Protein 7.4 gm/dL (6.0-8.3) 10/06/18 04:15 Albumin 3.7 gm/dL (3.7-5.3) 10/06/18 04:15 Globulin 3.7 gm/dL 10/06/18 04:15 Albumin/Globulin Ratio 1.0 (1.0-1.8) 10/06/18 04:15 Urine Source [place] 10/03/18 04:46 Urine Color YELLOW 10/03/18 04:46 Urine Clarity CLEAR (CLEAR) 10/03/18 04:46 Urine pH 7.5 (4.6 - 8.0) 10/03/18 04:46 Ur Specific [place] 1.010 (1.005-1.030) 10/03/18 04:46 Urine Protein NEGATIVE mg/dL (NEGATIVE) 10/03/18 04:46 Urine Glucose (UA) NEGATIVE mg/dL (NEGATIVE) 10/03/18 04:46 Urine Ketones NEGATIVE mg/dL (NEGATIVE) 10/03/18 04:46 Urine Blood NEGATIVE (NEGATIVE) 10/03/18 04:46 Urine Nitrate NEGATIVE (NEGATIVE) 10/03/18 04:46 Urine Bilirubin NEGATIVE (NEGATIVE) 10/03/18 04:46 Urine Urobilinogen 0.2 E.U./dL (0.2 - 1.0) 10/03/18 04:46 Ur Leukocyte Esterase NEGATIVE (NEGATIVE) 10/03/18 04:46 - Physical Exam Vitals and I&O: Vital Signs Temp 98.7 F 10/06/18 10:00 Pulse 97 10/06/18 10:00 Resp 20 10/06/18 10:00 BP 149/87 10/06/18 10:00 Pulse Ox 96 10/06/18 07:25 Intake & Output 10/05/18 10/06/18 10/06/18 18:59 06:59 18:59 Intake Total 1250 200 200 Output Total 1900 1200 Balance -650 -1000 200 Weight (lbs) 114.714 kg 114.305 kg 114.305 kg Intake: Oral 1250 200 200 Output: Urine 1900 1200 Other: # Bowel Movements 1 1 Stool Characteristics Soft Brown Weight Source Bedscale Bedscale Bedscale Active Medications: Current Medications Acetaminophen/Hydrocodone Bitart ([place] 5mg/325mg) 1 tab PO Q8HR PRN PRN Reason: Pain (Moderate) Stop: 12/01/18 23:51 Last Admin: 10/04/18 15:12 Dose: 1 tab Albuterol/Ipratropium (Duoneb Neb) 3 ml HHN Q4HRT PRN PRN Reason: Shortness of Breath or Wheeze Stop: 12/01/18 23:51 Last Admin: 10/05/18 18:24 Dose: 3 ml Aspirin (Aspirin Chewable) 81 mg PO DAILY [facility] Stop: 12/02/18 08:59 Last Admin: 10/06/18 09:21 Dose: 81 mg Carvedilol (Coreg) 6.25 mg PO BID [facility] Stop: 12/02/18 08:59 Last Admin: 10/06/18 09:26 Dose: 6.25 mg Enoxaparin Sodium (Lovenox) 40 mg SUBQ DAILY [facility] Stop: 12/02/18 08:59 Last Admin: 10/06/18 09:21 Dose: 40 mg Furosemide (Lasix) 20 mg IVP Q12HR [facility] Stop: 12/01/18 23:51 Last Admin: 10/06/18 09:21 Dose: 20 mg Gabapentin (Neurontin) 300 mg PO BID [facility] Stop: 12/02/18 08:59 Last Admin: 10/06/18 09:21 Dose: 300 mg Insulin Human Regular (Humulin R) 0 units SUBQ ACHS [facility]; Protocol Stop: 12/02/18 00:29 Last Admin: 10/06/18 06:52 Dose: Not Given Metformin HCl (Glucophage) 1,000 mg PO BID [facility] Stop: 12/02/18 08:59 Last Admin: 10/06/18 09:21 Dose: 1,000 mg Potassium Chloride (Klor-Con) 20 meq PO DAILY [facility] Stop: 12/03/18 08:59 Last Admin: 10/06/18 09:21 Dose: 20 meq General: Alert, No acute distress HEENT: Mucous membr. moist/pink Neck: Supple, JVD, +2 carotid pulse wo bruit (10 cm above sternal angle) Cardiovascular: Normal S1, Normal S2, Systolic murmurs, Other (atrial fibrillation) Lungs: Other (basilar rales) Abdomen: Bowel sounds, Soft, Obese (hepatojugular false-positive), Other Neurological: Normal speech, Strength at 5/5 X4 ext, Normal tone, Cranial nerves 3-12 NL, Reflexes 2+ Assessment/Plan - Assessment Assessment: Atrial fibrillation Congestive heart failure diastolic dysfunction acute Morbid obesity Hypertension Diabetes mellitus type 2 Hypokalemia Hyper magnesium Obstructive sleep apnea on CPAP machine and pulmonary hypertension - Plan Plan: Continue present management anticoagulation Lasix
--- NOTE | 2018-10-06 17:30 | Progress Notes ---
DATE: 10/06/2018 PULMONARY PROGRESS NOTE Dictating on behalf of Dr. Vlad Aggarwal. PROBLEM LIST: 1. Respiratory failure. 2. Suspect sleep apnea syndrome. 3. Congestive heart failure. SUBJECTIVE: Symptoms is nil, feeling okay, offers no much shortness of breath, etc. ____ wanted to go home. OBJECTIVE: GENERAL: Not in any acute distress. VITAL SIGNS: Temperature is 98.7, blood pressure 149/87, and saturation is 96% on room air. NECK: Veins not visualized. CHEST: Shows diminished air entry without much of adventitious breath sounds. HEART: Regular. ABDOMEN: Soft, nontender. LABORATORY DATA: The patient's white count is 6.8, hemoglobin 12.3. Electrolytes are okay. Potassium 3.3. ASSESSMENT: The patient clinically appears to be stable, improving with respiratory failure, heart failure, chronic atrial fibrillation, and suspect sleep apnea syndrome. PLANS AND SUGGESTIONS: We will go ahead and continue current treatment. We will follow, need for O2 and chest x-ray appears stable, possibly discharge planning. JOB# [id number]
--- NOTE | 2018-10-06 20:43 | Discharge Summary ---
DATE OF DISCHARGE: 10/06/2018 FINAL DIAGNOSES: 1. Acute exacerbation of diastolic congestive heart failure. 2. Acute respiratory failure. 3. Obstructive sleep apnea. 4. History of chronic atrial fibrillation. 5. Diabetes mellitus. 6. Hypertension. 7. Morbid obesity. REVIEW OF HISTORY: The patient is an 82-year-old female with long history of hypertension, diabetes mellitus, obstructive sleep apnea, diastolic congestive heart failure, presented to the Emergency Room with acute respiratory failure, admitted to the ICU, started on BiPAP. Pulmonary was consulted on the case. PHYSICAL EXAMINATION: VITAL SIGNS: Temperature was 98.2, heart rate 73. CHEST: Diminished breathing sound. ABDOMEN: Soft, bowel sounds positive. EXTREMITIES: 1+ edema. The patient started on IV Lasix. COURSE OF HOSPITALIZATION: During hospitalization, the patient was seen by Dr. Miah Moss and Maurisio Moss on 10/04/2018, the patient was feeling better, less cough, less shortness of breath. The patient transferred to the telemetry on 10/06/2018, patient feels well, cleared by the toys and games hand finisher to go home. Follow up as outpatient. Chest, clear to auscultation. Abdomen, soft, bowel sounds positive. DISPOSITION: The patient was discharged home to be followed up with primary physician next week. CONDITION ON DISCHARGE: Stable. MEDICATIONS: Follow discharge reconciliation. [facility]# [id number]
== END 2018-10-06 19:45 | disposition home health service (06) | DRG 291 ==
LOC: ER 20:49 → ICU 22:26 → TELE 10-05 18:13
PROVIDERS: ADMIT Family Medicine; ATTEND Family Medicine
DX: I11.0 Hypertensive heart disease with heart failure (principal); J96.00 Acute respiratory failure, unspecified whether with hypoxia or hypercapnia; Z68.41 Body mass index [BMI] 40.0-44.9, adult; I50.33 Acute on chronic diastolic (congestive) heart failure; E66.01 Morbid (severe) obesity due to excess calories; G47.33 Obstructive sleep apnea (adult) (pediatric); E87.6 Hypokalemia; E11.9 Type 2 diabetes mellitus without complications; E83.42 Hypomagnesemia; I27.20 Pulmonary hypertension, unspecified; M19.90 Unspecified osteoarthritis, unspecified site; E11.65 Type 2 diabetes mellitus with hyperglycemia; I48.2 Chronic atrial fibrillation; Z88.0 Allergy status to penicillin; Z90.49 Acquired absence of other specified parts of digestive tract; Z82.49 Family history of ischemic heart disease and other diseases of the circulatory system; Z80.9 Family history of malignant neoplasm, unspecified; Z83.3 Family history of diabetes mellitus
CPT/HCPCS: 36415-UA; 36600-90; 71045-TC; 80048-TC; 80053-TC; 81003-TC; 82803-TC; 82948-90; 83605; 83735-TC; 83880-TC; 84484-TC; 85025-TC; 93005; 94640; 94660; 94760; 97530; J1650; J1815; J1940; J3475; X3904; Z7610